=== PATIENT | female | born 1985 | race Caucasian/White ===

== ENCOUNTER 2020-02-28 12:37 | Outpatient (CLI) | payer SELFPAY ==
--- NOTE | 2020-02-28 16:23 | XRAY Report ---
PROCEDURE: Foot 3 View LT INDICATIONS: LEFT FOOT PAIN TECHNIQUE: 3 views of the foot were acquired. COMPARISON: None FINDINGS: Bones: There is a minimally displaced intra-articular fracture seen involving the base of the distal phalanx of the great toe laterally. No suspicious bony lesions. Soft tissues: Associated soft tissue swelling is seen. IMPRESSION: Great toe fracture involving the distal phalanx of the great toe, with minimal displacement and intra -articular involvement. Reviewed by: Sergio Hawk MD on 02/28/2020 3:22 PM [facility] Approved by: Sergio Hawk MD on 02/28/2020 3:22 PM TASIA Station ID: [id number]
--- NOTE | 2020-02-28 16:28 | XRAY Report ---
PROCEDURE: Hand 3 View RT INDICATIONS: RIGHT HAND PAIN TECHNIQUE: 3 views of the hand(s) acquired. COMPARISON: Correlation is made with the accompanying plain films, 02/28/2020 FINDINGS: Bones: No fractures or dislocations. No suspicious bony lesions. Soft tissues: No suspicious soft tissue calcifications. IMPRESSION: No acute bony abnormality is seen by plain film. If there is focal tenderness (or other strong clinical concern for a fracture that is not seen on thi s plain film study) then please consider a dedicated CT for further evaluation. Reviewed by: Sergio Hawk MD on 02/28/2020 3:26 PM [facility]AS[facility] Approved by: Sergio Hawk MD on 02/28/2020 3:26 PM TASIA Station ID: [id number]
== END 2020-02-28 12:38 | disposition home or self-care (01) ==
LOC: LAB.S 12:37 → DI.S 12:38
PROVIDERS: ATTEND Physician Assistant
DX: S92.422A Displaced fracture of distal phalanx of left great toe, initial encounter for closed fracture (principal); M79.641 Pain in right hand

== ENCOUNTER 2020-03-22 09:40 | Outpatient (CLI) | payer SELFPAY | END 2020-03-22 09:41 | disposition home or self-care (01) | LOC: COV 09:40 | PROVIDERS: ATTEND Family Medicine | DX: Z20.828 Contact with and (suspected) exposure to other viral communicable diseases (principal) ==